=== PATIENT | male | born 1970 | race Caucasian/White ===

== ENCOUNTER 2023-11-02 19:49 | Emergency (ER) | payer MEDICAID, OTHER ==
[~2023-11-02] VITALS: Ht 167.6 cm; Wt 70.0 kg
[2023-11-02 19:58] VITALS: O2SAT 100
[2023-11-02 21:25] VITALS: TEMP 36.61404
[2023-11-03 02:41] VITALS: BP 131/83; PULSE 73; RESP 16; O2SAT 96
== END 2023-11-03 04:10 | disposition home or self-care (01) ==
LOC: ER 19:49
DX: S00.83XA Contusion of other part of head, initial encounter (principal); X58.XXXA Exposure to other specified factors, initial encounter; Y93.89 Activity, other specified; Y92.89 Other specified places as the place of occurrence of the external cause; Y99.8 Other external cause status
CPT/HCPCS: 70486; 99285